=== PATIENT | male | born 1985 | race Caucasian/White ===

== ENCOUNTER 2023-08-12 12:31 | Emergency (ER) | payer BC, SELFPAY ==
[2023-08-12 12:33] VITALS: BP 136/83
[2023-08-12 13:20] VITALS: BP 121/45
[2023-08-12 13:22] VITALS: BP 121/45
--- NOTE | 2023-08-12 13:30 | ED.GENMED ---
History of Present Illness
General
Chief Complaint: Chest Pain
Source: patient
Exam Limitations: none
Time Seen by Provider: 08/12/23 13:30
Nursing documentation reviewed up to this point in time: agreed with
Travel History
Have you had any contact with someone who has COVID-19?: No
Do you have any symptoms of coronavirus? Fever > 100 degrees, chills, cough, shortness of breath, sore throat, loss of taste or smell, muscle aches, or headache?: No
History of Present Illness
History of Present Illness:
38-year-old male with history of HTN, pulmonary valve replacement, tonsillectomy presents stating it has been 5 years since his cardiac surgery and he does feel anxious but has had some chest pain just right to the mid sternum and also just medial
to the mid right scapula. The pain is in both places, it does not radiate. Pain is sharp but sometimes dull. It is intermittent lasting anywhere from 15 minutes to an hour. It is relieved by pressing on it, ibuprofen and heat. He works as a
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
Denies shortness of breath, radiation of pain, weakness, lightheadedness, breaking out in a sweat, nausea or vomiting.
Past History
Past History
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
Social History
Tobacco: Non-smoker
Alcohol: Occasional
Drug: None
Personal:
Living: with family
Family History
Family History: Negative Diabetes, Hypertension or CAD
Review of Systems
Review of Systems
Allergies reviewed?: Yes
All Other Systems: ROS reviewed and negative except as documented in HPI and ROS
Constitutional: Denies fever or fatigue
Respiratory: Denies trouble breathing
Cardiac: Reports chest pain; Denies diaphoresis or palpitations
ABD/GI: Denies abdominal pain or nausea
Musculoskeletal: Reports no symptoms
Skin: Reports no symptoms
Neurological: Reports no symptoms
Phy Exam
Physical Exam
Physical Exam:
GENERAL: No acute distress. A&Ox3.
CONSTITUTIONAL: Afebrile.
EYES: PERRL, conjunctivae normal
Neck: Supple
ENMT: moist mucus membranes, Pharynx nl
RESPIRATORY: Regular respirations, nonlabored, lungs clear.
CARDIOVASCULAR: Regular rate and rhythm, no murmurs, no rubs.
GI: Soft, nontender, normal BS
MUSCULOSKELETAL: Immediately point t to palpate over the right upper costosternal border. Point tender right trapezius just medial to the scapula. Moves with ease. Well perfused.
SKIN: Warm, dry, pink
PSYCH: Normal mood and affect. Well kept, interactive and appropriate
NEUROLOGIC: Awake, alert and oriented. No focal neurological deficits
Scores
Heart Score for Chest Pain Patients
STEMI patient?: Not applicable
Course
Orders/Labs/Results
Orders:
Orders
08/12/23 12:36
EKG [Electrocardiogram (*1)] Urgent
Reason for Study: Chest Pain
EKG- Treatment ONCE
08/12/23 13:44
Complete Blood Count/With Diff Urgent
Comprehensive Metabolic Panel Urgent
Troponin I Urgent
Abnormal Lab Results
08/12/23
13:44
RBC 4.57 L 10^6/uL
(4.70-6.10)
MCH 31.3 H pg
(27.0-31.0)
Absolute Lymphs (auto) 0.9 L 10^3/uL
(1.2-3.4)
Lymphocytes % 16.4 L %
(20.5-51.1)
Creatinine 0.6 L mg/dL
(0.7-1.3)
08/12/23 13:44
08/12/23 13:44
Vital Signs
Initial and Last Documented VS:
Initial Vital Signs
Pulse Resp BP Pulse Ox
86 16 136/83 98
08/12/23 12:33 08/12/23 12:33 08/12/23 12:33 08/12/23 12:33
Last Documented Vital Signs
Pulse Resp BP Pulse Ox
80 16 116/51 96
08/12/23 15:00 08/12/23 13:22 08/12/23 15:00 08/12/23 15:00
MDM/Problems Addressed
Differential Diagnosis Includes:
VA, musculoskeletal pain, anxiety
MDM/Problems Addressed:
38-year-old male with history of HTN, pulmonary valve replacement, tonsillectomy presents stating it has been 5 years since his cardiac surgery and he does feel anxious but has had some chest pain just right to the mid sternum and also just medial
to the mid right scapula. The pain is in both places, it does not radiate. Pain is sharp but sometimes dull. It is intermittent lasting anywhere from 15 minutes to an hour. It is relieved by pressing on it, ibuprofen and heat. He works as a
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
Denies shortness of breath, radiation of pain, weakness, lightheadedness, breaking out in a sweat, nausea or vomiting.
EKG NSR, no change
08/12/2023 1424 PM
CBC normal
CMP normal
Troponin: Normal
Patient's exam is consistent with a trigger point of the right trapezius muscle, palpation of this area immediately reproduces pain and he has immediately relief with massage to this area.
He is point tender at the mid costosternal border, could be a mild strain ligament no indication of cardiac etiology of his symptoms.
He does admit to feeling anxious due to this being the fifth anniversary of his cardiac surgery.
Patient is stable for discharge.
*EKG
EKG Intrepretation Date: 08/12/23
Interpretation: normal
Comparison EKG: no changes
Rate: normal
Rhythm: sinus
Imperial: normal axis
Interval: normal interval
QRS Pattern: normal QRS
Ischemia: no ischemia
*Critical Care Note
Total Time (30-74mins, 75-104mins- exclusive of procedures): Not Applicable
ED Attending Note
-
Portions of this chart may have been created with voice recognition software.� Occasional wrong word or��sound alike� substitutions may have occurred due to the inherent limitations of voice recognition software.
Discharge Plan
Departure
Patient Disposition: Home (Routine Discharge)
Date of Disposition: 08/12/23
Time of Disposition: 14:43
Patient with high blood pressure during this ER visit?: No
Condition: Good
Discharge Problem:
Trigger point of thoracic region, Sternocostal pain
Instructions: Chest Pain That Is Not Caused by the Heart (DC), Muscle Spasms (DC), Costochondritis (DC)
Prescriptions:
No Action
cyclobenzaprine 10 MG tablet
10 mg PO TIDPRN PRN (Reason: neck stiffness and pain) Qty: 21 0RF
Referrals:
Rangel Carrizales PA-C [Family Provider] - As needed
Activity Restrictions/Additional Instructions:
As we discussed, there is nothing in your workup here today to indicate your pain is coming from your heart. Specifically no sign of a heart attack. You do have a 'trigger point' muscle spasm in the upper back area. The pain in your chest wall may
be a mild sprain of the ligaments connecting your ribs to your sternum.
Warm compresses, gentle massage, ibuprofen or Tylenol
Interventions
Interventions:
*Risk Screen - Suicide Last Done: 08/12/23 12:33
*General Assessment Last Done: 08/12/23 12:33
*Neglect/Abuse Screening Last Done: 08/12/23 12:33
ED- Fall Risk Assessment Last Done: 08/12/23 14:48
*ED COVID-19 Vaccine History Last Done: 08/12/23 13:20
*Nursing Disposition Last Done: 08/12/23 15:28
ED- Cardiac Assessment Last Done: 08/12/23 13:21
Discharge Date and Time
Discharge Date/Time: 08/12/23 15:28
[2023-08-12 14:00] VITALS: BP 110/47
[2023-08-12 14:06] LABS: % Basophils 0.7 % (0-2); % Eosinophils 3.1 % (0-6); % Immature Granulocytes 0.2 % (0-0.5); % Lymphocytes 16.4 % (20.5-51.1); % Monocytes 6.3 % (1.7-9.3); % Neutrophils 73.3 % (42.2-75.2); Absolute Eosinophils 0.2 10^3/uL (0-0.7); Absolute Lymphocytes 0.9 10^3/uL (1.2-3.4); Absolute Monocytes 0.3 10^3/uL (0.1-0.6); Hemoglobin 14.3 g/dL (13.0-18.0); Mean Corp Hgb Conc. 34.9 g/dL (33.0-37.0); Mean Corpuscular Hgb 31.3 pg (27.0-31.0); Mean Corpuscular Volume 89.7 fL (80.0-94.0); Mean Platelet Volume 9.1 fL (7.4-10.4); Nucleated Red Blood Cells % 0 % (-); Platelet Count 226 10^3/uL (130-400); Red Blood Cell Count 4.57 10^6/uL (4.70-6.10); Red Cell Dist. Width 12.6 % (11.5-14.5); White Blood Cell Count 5.4 10^3/uL (4.8-10.8)
[2023-08-12 14:20] LABS: ALT (SGPT) 22 U/L (0-50); AST (SGOT) 27 U/L (17-59); Albumin 4.1 g/dl (3.5-5.0); Alkaline Phosphatase 80 U/L (38-126); Blood Urea Nitrogen 14 mg/dl (9-20); Calcium 9.2 mg/dl (8.4-10.2); Carbon Dioxide 25 mmol/L (22-30); Chloride 106 mmol/L (98-107); Glucose 84 mg/dl (70-99); Potassium 4.3 mmol/L (3.5-5.1); Sodium 136 mmol/L (135-145); Total Bilirubin 0.6 mg/dl (0.2-1.3); Total Protein 7.1 g/dl (6.3-8.2); eGFR > 60.00
[2023-08-12 14:30] LABS: Troponin I < 0.012 ng/ml
[2023-08-12 15:00] VITALS: BP 116/51
== END 2023-08-12 15:28 | disposition home or self-care (01) ==
LOC: EMR 12:31
PROVIDERS: Registered Nurse; EMERGENCY PHYSICIAN Emergency Medicine; FAMILY PHYSICIAN Physician Assistant Medical
DX: M54.6 Pain in thoracic spine (principal); R07.2 Precordial pain; Z95.2 Presence of prosthetic heart valve
CPT/HCPCS: 99284; 80053; 84484; 85025; 93005